=== PATIENT | female | born 1955 | race Caucasian/White ===

== ENCOUNTER 2017-11-29 09:35 | Inpatient (IN) ==
--- NOTE | 2017-11-28 21:49 | Discharge Summary ---
<Catrachito Doshi - Last Filed: 11/29/17 09:55> Orders not resulted at time of discharge: Pending orders 11/29/17 00:01 XR knee RT limited 1-2V [XR] Routine H/H [Hemoglobin and Hematocrit] [HEME] Routine Date of Encounter: 11/29/17 - Discharge Diagnosis (1) Obesity (BMI 30.0-34.9) Priority: Secondary Status: Chronic (2) Arthritis of knee, right Priority: Primary Status: Chronic (3) Status post total knee replacement, right Priority: Primary Status: Acute (4) DMII (diabetes mellitus, type 2) Priority: Secondary Status: Chronic Qualifiers: Diabetes mellitus custodial insulin use: unspecified custodial insulin use status Diabetes mellitus complication status: with unspecified complications Qualified Code(s): E11.8 - Type 2 diabetes mellitus with unspecified complications (5) HTN (hypertension) Priority: Secondary Status: Chronic Qualifiers: Hypertension type: essential hypertension Qualified Code(s): I10 - Essential (primary) hypertension - Hospital Course Hospital course: Ms. Vora is a 62 year old female - Time Spent with Patient Total time spent providing and/or coordinating discharge services: - Discharge Medications Home Medications: Calcium Carbonate [Calcium] 500 mg PO DAILY 08/18/17 [History] Lisinopril [Zestril] 10 mg PO DAILY 08/18/17 [History] Multivitamin [One Daily Essential] 1 each PO DAILY 08/18/17 [History] metFORMIN [Glucophage] 500 mg PO 1700 08/18/17 [History] Aspirin Enteric Coated [Aspirin EC] 325 mg PO BID #20 tablet. 11/28/17 [Rx] OxyCODONE Immed Rel [Roxicodone 5 MG] 5 mg PO Q6HR PRN 7 Days #28 tablet [Rx] Progesterone,Micronized [Prometrium] 200 mg PO HS 11/29/17 [History] Allergies/Adverse Reactions: 3 Allergy/AdvReac Type Severity Reaction Status Date / Time No Known Allergies Allergy Verified 11/29/17 10:31 Primary care physician: Micah Langford DO - Patient Status Disposition: Home Health Service Condition: Good - Discharge Instructions Instructions: Total Knee Replacement (DC) Follow Up With: Elijah Langford DO [Primary Care Provider] - Additional Instructions: Discharge Instructions: Total Knee Replacement Please call [facility] ([phone]), your Primary Care Physician, or report to the Emergency Room if you have any of the following symptoms: Nausea, vomiting, fever greater that 101.5, swelling, chest pain, shortness of breath, increased pain/redness/drainage/odor for your incision site, numbness/ tingling, or any other concerning symptoms. ACTIVITY:Weight-bearing as tolerated. You may progress off support (crutches or walker) as tolerated. Incentive Spirometer 10 times an hour. MEDICATIONS: Upon discharge resume your home medications. Take all the medications as prescribed. Take a stool softener if taking narcotic pain medications. Stool softeners are only effective if you drink enough fluids. Drink 6-8 glass of water or fluids a day, unless this is not allowed for another health problem. Despite using stool softeners, if you haven't had a bowel movement in 3 days, please switch to a gentle laxative. Gentle laxatives are sold over the counter. You should have a bowel movement within 24 hours, if not call the office. You will be discharged from the hospital with a prescription for pain medication. You are encouraged to decrease the use of narcotic pain medication as tolerated. Should you require a refill, please call the office. [facility] prescribes narcotic pain medication for only 4-6 weeks after surgery. If you require pain medication beyond this time period, you may be referred to your Primary Care Physician or to the Pain Clinic for further evaluation. Plan ahead for refills on pain medication as many narcotics either need to be picked up at the office or mailed. It is best to call 48-72 hours in advance of needing a prescription refill so you don't run out of medication. To help control the post-operative pain, you may take NSAIDs (Aleve,Advil, Motrin, Ibuprofen, Naprosyn) or Tylenol as prescribed on the bottle in addition to the pain medication. ANTICOAGULATION (blood thinners): Continue your Aspirin, Lovenox or Coumadin as prescribed to help prevent a blood clot in the leg or in the lungs. As long as your incision remains dry and you tolerate the NSAIDs (Aleve, Advil, Motrin, ibuprofen, naprosyn), it is OK to use the NSAIDS while you are taking your anticoagulation medication. Should your incision start to drain, stop the NSAID and contact our office. Common symptoms of blood clot in the legs include: localized pain, swelling, calf tenderness, redness or discoloration of the skin. Blood clot in the lung symptoms include: shortness of breath, rapid pulse, sweating, and chest pain that worsens with deep breathing, coughing up blood, lightheadedness, feelings of anxiety. If you experience any of these symptoms notify your physician immediately, go to the emergency room, or if having trouble breathing, call 911. WOUND CARE: Leave the dressing on for 7 to 10days. You may change the dressing if it becomes saturated greater than 50%. Do not get the dressing wet at anytime. Wash your hands with antibacterial soap, rinse and dry prior to any wound care. If you have dyllan the visiting nurse or rehab facility can remove the stapes 10-14 days after surgery and place steri-strips across the wound. Leave the steri-strips in place until they fall off on their won. You may let water from the shower run on top of the steri-strips. If you do not have a visiting nurse or rehab facility, you will need to return to the office at 10-14 days for the dyllan to be removed. If you have itching or redness around the dressing call the office. FOLLOW-UP: Please follow up with your surgeon in the orthopedic clinic in 4 weeks from the day of surgery. If you have dyllan that need to be removed, you will need to come back to the office in 10-14 days from the day of surgery. <Rosaura Arreguin - Last Filed: 12/01/17 15:28> Date of Encounter: 12/01/17 Time of Encounter: 15:24 - Discharge Diagnosis (1) Status post total knee replacement, right Priority: Primary Status: Acute Comments: Opsite dressing, leave intact until first post-operative visit. If dressing becomes >50% saturated, contact office, remove dressing and place appropriate dressing in its place. Do not allow for dressing to get wet. Zipline in place, plan to remove at post-operative day #14-16. Total Joint Precautions x 6 weeks Apply cold therapy wrap 3-6x/day for 20 minutes at a time. Encourage ambulation throughout the day Use Incentive spirometer 10x/hour. Elevate affected extremity above heart as tolerated. Brace: Wear knee immobilizer AT NIGHT ONLY until first post-operative appt. .~ (2) Arthritis of knee, right Priority: Primary Status: Chronic (3) DMII (diabetes mellitus, type 2) Priority: Secondary Status: Chronic Qualifiers: Diabetes mellitus long goods drier insulin use: unspecified custodial insulin use status Diabetes mellitus complication status: with unspecified complications Qualified Code(s): E11.8 - Type 2 diabetes mellitus with unspecified complications (4) HTN (hypertension) Priority: Secondary Status: Chronic Qualifiers: Hypertension type: essential hypertension Qualified Code(s): I10 - Essential (primary) hypertension (5) Obesity Priority: Secondary Status: Chronic Qualifiers: Obesity type: due to excess calories Obesity classification: adult class 1 (BMI 30 - 34.9) Serious obesity comorbidity presence: without serious comorbidity Body mass index: BMI 33.0-33.9 Qualified Code(s): E66.09 - Other obesity due to excess calories; Z68.33 - Body mass index (BMI) 33.0-33.9, adult - Hospital Course Hospital course: Ms. Vora is a 62 year old female, ~status post right TKR~ . Patient had uneventful postoperative course. Stable for discharge. Afebrile, vital signs stable. Vital Signs Temp Pulse Resp BP Pulse Ox 12/01/17 10:25 98.1 F 89 16 141/81 97 12/01/17 07:21 98.4 F 91 15 133/78 96 12/01/17 04:12 98.7 F 92 16 136/79 93 11/30/17 23:08 98.1 F 89 16 152/85 96 11/30/17 18:29 98.1 F 83 17 143/81 96 11/30/17 16:21 97.8 F 105 16 134/82 96 Intake and Output 11/30/17 12/01/17 12/01/17 23:59 07:59 15:59 Intake Total 700 / 700 250 / 250 Output Total 300 / 300 Balance 700 / 700 -50 / -50 Intake: Oral 700 / 700 250 / 250 Output: Urine 300 / 300 Other: Stool Size Moderate Stool Consistency formed # Voids 1 1 Weight 81.7 kg Blood Glucose* 148 115 139 Patient Weight 12/01/17 23:59 Weight 81.7 kg Labs reviewed. H/H - stable, asymptomatic Short CBC 12/01/17 Range/Units 01:52 Hgb 10.9 L D (11.5-15.4) g/dL Hct 32.3 L (35.3-44.9) % BMP 12/01/17 Range/Units 01:52 Sodium 136 (136-145) mEq/L Potassium 4.2 (3.5-5.1) mEq/L Chloride 104 (98-107) mEq/L Carbon Dioxide 26 (23-29) mEq/L BUN 16 (8-23) mg/dL Creatinine 0.55 L (0.60-1.20) mg/dL Glucose 133 H (70-105) mg/dL Calcium 8.6 (8.6-10.3) mg/dL Pain control: adequate Participating in PT. All questions and concerns addressed. Educated on use of incentive spirometer. Encouraged ambulation and proper hydration. Patient educated on post-operative restrictions and post-operative care. Assessment and plan: Continue with postoperative care Discharge plan: Home with , discharge today. - Time Spent with Patient Total time spent providing and/or coordinating discharge services: Date of admission: 11/29/17 Primary care physician: Micah Langford DO Anticipated date of discharge: 12/01/17 - Patient Status Functional capacity at discharge: uses cane/walker Overall status at discharge: patient is progressing back to baseline - Diet and Activity Activity: as per physical therapy Diet: advance to your usual diet
[2017-11-29] MEDS ORDERED: *HR* Propofol 200 MG/20 ML VIAL IVP ONE (09:39)
--- NOTE | 2017-11-29 09:55 | History & Physical Report ---
Date of Encounter: 11/29/17 Time of Encounter: 09:54 24 Hour HP Update - Instructions Instructions: If the History and Physical is less than 30 days old and was completed prior to A.M. admission and or procedure and has NOT been updated on calendar day of procedure please complete this update prior to performing procedure. - Update Patient reports changes in Medical Condition: No Changes in examination, assessment, or condition: No Changes in Medication: No Preop tests/diagnostics Reviewed: Yes Surgery Remains Indicated: Yes Consent for Planned Operative Procedure(s) Verified: Yes - Pre-Operative Checklist Preoperative Checklist Indicated: No Prophylactic Antibiotic Ordered: Yes Is VTE Prophylaxis Indicated?: Yes
[2017-11-29] MEDS ORDERED: *HR* FentaNYL (PF) 100 MCG/2 ML VIAL ONE ×2 (10:06→12:27)
[2017-11-29] MEDS ORDERED: *HR* Midazolam HCl 2 MG/2 ML VIAL ONE (10:06)
[2017-11-29] MEDS ORDERED: Lidocaine -MPF 2% 2 ML VIAL ONE (10:07)
[2017-11-29] MEDS ORDERED: Dexamethasone 4 MG/ML VIAL ONE (10:07)
[2017-11-29] MEDS ORDERED: Ondansetron 4 MG/2 ML VIAL ONE ×2 (10:07→10:09)
[2017-11-29] MEDS ORDERED: CeFAZolin Syr 2,000MG/20 ML 2,000 MG/20 ML SYRINGE IVPB ONE (10:07)
[2017-11-29] MEDS ORDERED: Ethanol\\Acetic Acid\\Na Ace\\Ben 1,000 ML IRRIG.SOLN IR ONE (10:07)
[2017-11-29] MEDS ORDERED: Ringers Solution, Lactated 1,000 ML IVC SCH ×2 (10:15→13:47)
[2017-11-29] MEDS ORDERED: *HR* Promethazine 25 MG/ML VIAL IVP PRN (10:28)
[2017-11-29] MEDS ORDERED: *HR* HYDROmorphone (PF) 1 MG/ML SYRINGE IVP PRN (10:28)
[2017-11-29] MEDS ORDERED: Ondansetron 4 MG/2 ML VIAL IVP ONE (10:28)
[2017-11-29] MEDS ORDERED: *HR* OxyCODONE/APAP 5/325 TABLET PO PRN (10:28)
[2017-11-29] MEDS ORDERED: ROPIVACAINE HCL/PF 0.5% 30 ML VIAL ONE (10:43)
--- NOTE | 2017-11-29 10:43 | Anesthesia Evaluation PreOp ---
Date of Encounter: 11/29/17 Time of Encounter: 10:40 - Past History Planned Operation: Robotic R knee arthroplasty Cardiac History: HTN, Hyperlipidemia Pulmonary History: Denies Any Significant HX POLYSOMNOGRAPHIC TECHNOLOGIST History: Denies Any Significant HX Other Medical History: Diabetes Type II, Other (scoliosis, chronic back pain) Anesthesia History: No Prior Anesthetic Complications, Past Anesthesia ( csection x 3, hysteroscopy) Alcohol Use: none Drug use: none Medications and Allergies Calcium Carbonate [Calcium] 500 mg PO DAILY 08/18/17 [History] Lisinopril [Zestril] 10 mg PO DAILY 08/18/17 [History] Multivitamin [One Daily Essential] 1 each PO DAILY 08/18/17 [History] metFORMIN [Glucophage] 500 mg PO 1700 08/18/17 [History] Aspirin Enteric Coated [Aspirin EC] 325 mg PO BID #20 tablet. 11/28/17 [Rx] OxyCODONE Immed Rel [Roxicodone 5 MG] 5 mg PO Q6HR PRN 7 Days #28 tablet [Rx] Aspirin [Adult Aspirin Regimen] 81 mg PO DAILY 11/29/17 [History] Progesterone,Micronized [Prometrium] 200 mg PO HS 11/29/17 [History] 3 Allergy/AdvReac Type Severity Reaction Status Date / Time No Known Allergies Allergy Verified 11/29/17 10:31 - Meds/Allergy Pre-op Review Medications Reviewed: Yes Allergies Reviewed: Yes Beta Blockers on Current Med List: No Anesthesia Results - Labs Laboratory Tests 11/16/17 11/16/17 11/16/17 12:15 12:15 12:15 WBC 6.3 Hgb 15.4 Hct 44.6 Plt Count 236 PT 11.1 INR 1.0 APTT 34.7 Sodium 139 Potassium 4.2 Chloride 108 H Carbon Dioxide 26 BUN 21 Creatinine 0.63 - Imaging EKG: report reviewed (SINUS RHYTHM POOR R WAVE PROGRESSION Electronically Signed On 08-13-2017 8:41:23 EDT by Reji Cain) Anesthesia Exam O2 Sat Height 1.55 m Weight 81.647 kg Weight 81.647 kg O2 Sat by Pulse Oximetry 93 Vital Signs Temp Pulse Resp BP Pulse Ox 97.7 F 75 18 117/73 93 11/29/17 10:13 11/29/17 10:13 11/29/17 10:13 11/29/17 10:13 11/29/17 10:13 Blood glucose: 104 Weight: 81kg NPO (# of Hours): >8 - HEENT Pupil (Motor): Pupils equal, EOMI Mallampati: III Teeth: Normal (overbite, prominent front teeth) Oral Opening: Greater than 3 - POLYSOMNOGRAPHIC TECHNOLOGIST LOC: Oriented POLYSOMNOGRAPHIC TECHNOLOGIST Motor: Normal RUE, Normal LUE, Normal RLE, Normal LLE, Normal Face POLYSOMNOGRAPHIC TECHNOLOGIST Sensory: Normal: RUE, LUE, RLE, LLE, Face - Cardiac Rhythm: Regular - Pulmonary Breath Sounds: bilateral Clear Respiratory Effort: Symmetrical Anesthesia Assess/Plan ASA Score: 2 Modified [place] Scale for Level of Consciousness: Cooperative, oriented, and tranquil Anesthetic Plan: General, Regional (R adductor and Ipack) Monitoring Plan: Standard Monitors Recovery Plan: PACU
[2017-11-29] MEDS ORDERED: Acetaminophen IV 1,000 MG/100 ML INFUS..BTL ONE (10:46)
--- NOTE | 2017-11-29 12:04 | Anesthesia Procedures ---
Date of Encounter: 11/29/17 Time of Encounter: 11:24 Procedures: Anesthesia - Nerve Block Procedure Date: 11/29/17 Time: 11:24 Allergies/Adv Reactions: NKDA Pre-op Diagnosis: R Knee Arthritis Surgical Procedure: R Robotic Total Knee Arthroplasty Checklist: Correct Patient Identifier, Correct procedure, History checked Correct side: Right Blood Thinner: No Monitor Applied: EKG, BP, Pulse Oximetry Supplemental Oxygen via Nasal Cannula (L/min): 2 Sedation: Versed (mg): 2 Sedation: Fentanyl (mcg): 50 Indication: Post Op Analgesia Pre-op Neuro Deficits: No Block Type: Other (Adductor, iPACK, AB) Catheter placed: No Sterile Technique: Yes Ultrasound used: Yes Anatomy identified: Yes Visual spread of Local: Yes Neuro Stimulation: No Blood on Needle Aspiration: No Smooth Injection of Local: Yes Pain with Injection of Local: No Prep: Chlorhexadine Needle: 21 x 100 mm Stimuplex Local: Ropivacaine (30mL of 0.5% Ropi with 4mg decadron (Adductor), 20mL (IPACK ) 10mL (AB) with 0.25% Ropi with 4mg Decadron) Number of Attempts: 1 Complications: None/effective block Vitals: Vital Signs/O2 Sat/Glucose, Most Recent Temp Pulse Resp BP Pulse Ox 97.7 F 69 18 122/69 92 11/29/17 10:13 11/29/17 11:42 11/29/17 10:13 11/29/17 11:42 11/29/17 11:42 Blood Glucose* 104
[2017-11-29] MEDS ORDERED: EPHEDrine 50 MG/ML VIAL ONE (12:38)
--- NOTE | 2017-11-29 12:44 | Orthopedic Operative Note ---
Date of procedure: 11/29/17 Pre-op diagnosis: Right knee arthritis Post-op diagnosis: same Procedure: Procedure: Right robotic-assisted Total knee replacement Estimated blood loss: 200 cc Hardware: Metal and polyethylene replacement. [place] Femur: 3 Tibia: 3 TS insert: 11 Patella: 36 Exam Under anesthesia: 6 degrees flexion contracture and 6 degree varus as calculated by the robot full flexion and no instability Procedural Notes: Grade 4 arthritic changes all 3 compartments. Operative procedure: The patient was brought to the operating room and placed on the operating room table. After general anesthesia was administered the operative knee was examined. Findings were noted in the exam under anesthesia. The operative extremity was prepped and draped in sterile surgical fashion. The patient received IV antibiotics prior to skin incision. A standard midline incision was made centered over the patella. The incision was made through the skin and subcutaneous tissue. A medial parapatellar tendon approach was performed. Care was taken to preserve tissue along the medial aspect of the patella. And to protect the patella tendon. The deep MCL was released off the medial tibia. The infra patella fat pad was excised. The patella was everted and cut was made at the level of the insertion of the quadriceps and patella tendon. The patella was sized the guide was seated and the lug holes are drilled. Knee was brought into flexion. Patient noted to have Steinmann pins were placed in the tibia and the femur for the tibial and femoral arrays respectively. Checkpoints were also placed in the tibia and the femur for calculation purposes. The knee including the femur and the tibial registered. Osteophytes, ACL and PCL were excised at this point. Extension and flexion were assessed with a valgus stress components were adjusted on the computer to balance the knee. Femoral cuts were made first with robotic assistance, these included the anterior cut posterior cuts chamfer cuts. Tibial cut was then performed with robotic assistance as well. Bone fragments were removed, as well as the medial and lateral meniscus. The size 3 femoral guide was seated box cut was made lug holes are drilled. The size 3 tibial tray was seated and prepared with the fin cutter. Trial reduction with the 11 TS Inge revealed extension of 0 degree and 0 degree varus valgus full flexion. No varus valgus instability. Trial reduction revealed excellent patella tracking. All trial components were removed all bony surfaces were irrigated. The Tibia was seated followed by the femur, The selected Inge size was seated and secured patella. Patient had similar findings for motion and stability. The knee was closed by the PA. The knee was then irrigated out with 2 L of pulse irrigation. The extensor mechanism was closed with #2 FiberWire suture and #2 PDS suture. The subcutaneous tissue was then irrigated and closed deep with #1 PDS suture superficially with 0 PDS suture and skin was closed with zip tie The patient was then placed in a sterile dressing and a postoperative brace extubated and transferred to recovery room in stable condition. Anesthesia: GETA Surgeon: Catrachito Doshi Was there an general surgery physician assistant present: Yes Senior Staff Accountant: Rosaura Arreguin Estimated blood loss (cc): 200 Condition: stable Disposition: PACU
--- NOTE | 2017-11-29 13:31 | Anesthesia Evaluation Post Op ---
Date of Encounter: 11/29/17 Time of Encounter: 13:29 - Vital Signs Vital Signs: Vital Signs/O2 Sat, Most Current Temp Pulse Resp BP Pulse Ox 97.7 F 69 18 122/69 92 11/29/17 10:13 11/29/17 11:42 11/29/17 10:13 11/29/17 11:42 11/29/17 11:42 - Lungs Lungs: Clear Ascult./Percussion - Airway Airway: Non-obstructed - Cardiovascular Regular Rate - Mental Status Mental Status: Alert & Oriented, Answers Appropriately - Pain Pain Scale: 4 Pain Scale used: Numeric (1 - 10) - Nausea Vomiting Nausea Vomiting: Not Present - Hydration Hydration: Ice chips, Has not voided Notes: 11/29/17 13:30 Pt denies complaints - Discharge PostOp Status: Transfer Patient to floor
[2017-11-29] MEDS ORDERED: Ondansetron 4 MG/2 ML VIAL IVP PRN (13:47)
[2017-11-29] MEDS ORDERED: Temazepam 15 MG CAPSULE PO PRN (13:47)
[2017-11-29] MEDS ORDERED: D5% in Water 1,000 ML IVC PRN (13:47)
[2017-11-29] MEDS ORDERED: Dextrose Gel 15 GM/37.5 ML TUBE PO PRN ×2 (13:47)
[2017-11-29] MEDS ORDERED: MOM Conc 10 ML UD.LIQ PO PRN (13:47)
[2017-11-29] MEDS ORDERED: Sennosides 8.6 MG TABLET PO PRN (13:47)
[2017-11-29] MEDS ORDERED: Naloxone 0.4 MG/ML INJ IVP PRN (13:47)
[2017-11-29] MEDS ORDERED: *HR* Dextrose 50 % in Water (Syg) 50 ML SYRINGE IVP PRN (13:47)
[2017-11-29] MEDS ORDERED: traMADol 50 MG TABLET PO PRN (13:47)
[2017-11-29 14:01] LABS: Hematocrit 40.4 % (35.3-44.9); Hemoglobin 13.7 g/dL (11.5-15.4)
[2017-11-29] MEDS: Insulin LISPRO 300 UNITS/3 ML VIAL SQ SCH ×3 (14:31→21:06)
[2017-11-29] MEDS: *HR* OxyCODONE/APAP 5/325 TABLET PO PRN ×2 (14:36→18:32)
[2017-11-29] MEDS: *HR* Metformin 500 MG TABLET PO SCH (16:04)
[2017-11-29] MEDS: *HR* Enoxaparin 30 MG/0.3 ML SYRINGE SQ SCH (17:19)
[2017-11-29] MEDS ORDERED: PROGESTERONE MICRONIZED 200 MG PO SCH (21:00)
[2017-11-30] MEDS: *HR* OxyCODONE/APAP 5/325 TABLET PO PRN ×2 (00:02→05:25)
[2017-11-30 01:49] LABS: BUN/Creatinine Ratio 19 (6-26); Blood Urea Nitrogen 13 mg/dL (8-23); Calcium 8.8 mg/dL (8.6-10.3); Carbon Dioxide 24 mEq/L (23-29); Chloride 109 mEq/L (98-107); Glucose 160 mg/dL (70-105); Osmolality,Calculated 290 (280-300); Potassium 4.6 mEq/L (3.5-5.1); Sodium 138 mEq/L (136-145); eGFR For Non-African Americans > 60 (> 60)
[2017-11-30 01:51] LABS: Hemoglobin 12.4 g/dL (11.5-15.4)
[2017-11-30] MEDS: *HR* Enoxaparin 30 MG/0.3 ML SYRINGE SQ SCH ×2 (05:25→17:24)
--- NOTE | 2017-11-30 06:20 | Orthopedics Progress Note ---
Date of Encounter: 11/30/17 Time of Encounter: 06:20 - Assessment and Plan (1) Obesity (BMI 30.0-34.9) Current Visit: Yes Status: Chronic (2) Arthritis of knee, right Current Visit: No Status: Chronic (3) Status post total knee replacement, right Current Visit: No Status: Acute (4) DMII (diabetes mellitus, type 2) Current Visit: No Status: Chronic Qualifiers: Diabetes mellitus residential insulin use: unspecified residential insulin use status Diabetes mellitus complication status: with unspecified complications Qualified Code(s): E11.8 - Type 2 diabetes mellitus with unspecified complications (5) HTN (hypertension) Current Visit: No Status: Chronic Qualifiers: Hypertension type: essential hypertension Qualified Code(s): I10 - Essential (primary) hypertension Subjective Interval history: Patient was seen this morning doing well without complaints. Afebrile vital signs stable. Operative extremity: Neurovascularly intact Dressing clean dry and intact Calves nontender Assessment and plan: Continue with postoperative care Hematocrit 36 Objective Vital signs: Vital Signs Temp Pulse Resp BP Pulse Ox 11/30/17 04:04 97.9 F 82 16 126/78 96 11/30/17 00:11 97.6 F 90 17 120/75 94 11/29/17 19:33 97.5 F L 99 16 113/76 91 11/29/17 18:42 97.5 F L 99 16 91 11/29/17 16:45 98.3 F 96 16 119/79 96 11/29/17 15:50 97.5 F L 97 14 132/84 97 11/29/17 15:02 97.6 F 84 16 134/77 98 11/29/17 14:35 97.4 F L 84 14 138/75 96 11/29/17 13:51 97.3 F L 80 16 130/79 98 11/29/17 13:34 97.3 F L 79 16 144/77 96 11/29/17 13:24 85 16 148/75 94 11/29/17 13:14 83 16 150/76 96 11/29/17 13:04 97.1 F L 94 20 145/77 100 11/29/17 11:42 69 122/69 92 11/29/17 11:28 69 137/80 95 11/29/17 10:13 97.7 F 75 18 117/73 93 Intake and Output 11/29/17 11/29/17 11/30/17 15:59 23:59 07:59 Intake Total 600 / 600 Output Total 200 / 200 700 / 700 Balance -200 / -200 -100 / -100 Intake: IV Fluids 100 / 100 Ancef 2,000 MG In 0.9 % Sodium 100 / 100 Chloride 100 ML @ 200 mls/hr IVPB Q8HR [facility] Rx#:[id number] Oral 500 / 500 Output: Urine 700 / 700 Estimated Blood Loss 200 / 200 Other: Weight 81.647 kg Blood Glucose* 106 195 - Labs CBC & BMP: 11/30/17 01:14 11/30/17 01:14 Labs: Abnormal lab results Chloride 109 mEq/L (98-107) H 11/30/17 01:14 Glucose 160 mg/dL (70-105) H 11/30/17 01:14 POC Glucose 195 mg/dL (70-99) H 11/29/17 21:05 Consult Discharge Plan - Plan Referrals: Elijah Langford DO [Primary Care Provider] -
[2017-11-30] MEDS: Insulin LISPRO 300 UNITS/3 ML VIAL SQ SCH ×4 (07:46→21:10)
[2017-11-30] MEDS: Multivit/Ca/Min/Fe/FA 1 TAB TABLET PO SCH (07:50)
[2017-11-30] MEDS: Aspirin Enteric Coated 81 MG Tablet PO SCH (07:50)
[2017-11-30] MEDS: *HR* OxyCODONE Immed Rel 5 MG TABLET PO PRN ×3 (10:37→18:47)
--- NOTE | 2017-11-30 12:30 | Physician Discharge Referral ---
Home Health/Hosp Referral Info Transfer to: Home Health Attending Provider: Provider in Charge Post Discharge: PCP - Diagnosis (1) Status post total knee replacement, right Priority: Primary Status: Acute (2) Arthritis of knee, right Priority: Primary Status: Chronic (3) DMII (diabetes mellitus, type 2) Status: Chronic (4) HTN (hypertension) Status: Chronic (5) Obesity Status: Chronic - Respiratory Orders None Smoking Cessation: Smoking cessation has been advised. For more information, call the [place] Tobacco Quit Line at 4-789-GYNA-NOW. - Diet/Nutrition Diet/Nutrition Orders: Regular - Activity Activity Orders: Up ad noemy, Ambulate, Chair, Walker - Services Needed Following services are medically necessary services: Nursing, Home Health Aide, Physical Therapy, Occupational Therapy Home Care Orders: Opsite dressing, leave intact until first post-operative visit. If dressing becomes >50% saturated, contact office, remove dressing and place appropriate dressing in its place. Do not allow for dressing to get wet[facility], plan to remove at post-operative day #14-16. Total Joint Precautions x 6 weeks Apply cold therapy wrap 3-6x/day for 20 minutes at a time. Encourage ambulation throughout the day Use Incentive spirometer 10x/hour. Elevate affected extremity above heart as tolerated. Brace: Wear knee immobilizer at night until first post-operative appt. ~ - Transfer Medications Home Medications: Calcium Carbonate [Calcium] 500 mg PO DAILY 08/18/17 [History] Lisinopril [Zestril] 10 mg PO DAILY 08/18/17 [History] Multivitamin [One Daily Essential] 1 each PO DAILY 08/18/17 [History] metFORMIN [Glucophage] 500 mg PO 1700 08/18/17 [History] Aspirin Enteric Coated [Aspirin EC] 325 mg PO BID #20 tablet. 11/28/17 [Rx] OxyCODONE Immed Rel [Roxicodone 5 MG] 5 mg PO Q6HR PRN 7 Days #28 tablet [Rx] Aspirin [Adult Aspirin Regimen] 81 mg PO DAILY 11/29/17 [History] Progesterone,Micronized [Prometrium] 200 mg PO HS 11/29/17 [History] Allergies/Adverse Reactions: 3 Allergy/AdvReac Type Severity Reaction Status Date / Time No Known Allergies Allergy Verified 11/29/17 10:31 Certification: Further, I certify that my clinical findings support that this patient is homebound (i.e. absences from home require considerable and taxing effort and are for medical reasons or mandaen services or infrequently or short duration when for other reasons) because: Homebound Reason: Post-surgery restriction and or conditions limit ability to leave home Attestation: My signature below is to certify that this patient is under my care and that I, or nurse practitioner, or a physician's veterinary assistant working with me, has a face-to -face encounter with this patient.
[2017-11-30] MEDS: *HR* Metformin 500 MG TABLET PO SCH (17:23)
[2017-11-30] MEDS ORDERED: PROGESTERONE MICRONIZED 200 MG PO SCH (21:00)
--- NOTE | 2017-11-30 23:20 | Event Note ---
Date of Encounter: 11/30/17 Time of Encounter: 23:19 Patient using restroom during PCR Plan to DC tomorrow
[2017-12-01] MEDS: *HR* OxyCODONE Immed Rel 5 MG TABLET PO PRN ×2 (00:43→05:28)
[2017-12-01 02:23] LABS: Hematocrit 32.3 % (35.3-44.9); Hemoglobin 10.9 g/dL (11.5-15.4)
[2017-12-01 02:49] LABS: BUN/Creatinine Ratio 29 (6-26); Blood Urea Nitrogen 16 mg/dL (8-23); Calcium 8.6 mg/dL (8.6-10.3); Carbon Dioxide 26 mEq/L (23-29); Chloride 104 mEq/L (98-107); Glucose 133 mg/dL (70-105); Osmolality,Calculated 285 (280-300); Potassium 4.2 mEq/L (3.5-5.1); Sodium 136 mEq/L (136-145); eGFR For Non-African Americans > 60 (> 60)
[2017-12-01] MEDS: *HR* Enoxaparin 30 MG/0.3 ML SYRINGE SQ SCH (05:29)
--- NOTE | 2017-12-01 07:51 | Orthopedics Progress Note ---
Date of Encounter: 12/01/17 Time of Encounter: 07:50 - Assessment and Plan (1) Obesity (BMI 30.0-34.9) Current Visit: Yes Status: Chronic (2) Arthritis of knee, right Current Visit: No Status: Chronic (3) Status post total knee replacement, right Current Visit: No Status: Acute (4) DMII (diabetes mellitus, type 2) Current Visit: No Status: Chronic Qualifiers: Diabetes mellitus senior care insulin use: unspecified senior care insulin use status Diabetes mellitus complication status: with unspecified complications Qualified Code(s): E11.8 - Type 2 diabetes mellitus with unspecified complications (5) HTN (hypertension) Current Visit: No Status: Chronic Qualifiers: Hypertension type: essential hypertension Qualified Code(s): I10 - Essential (primary) hypertension Subjective Interval history: Patient was seen this morning doing well without complaints. Afebrile vital signs stable. Operative extremity: Neurovascularly intact Dressing clean dry and intact Calves nontender Assessment and plan: Continue with postoperative care Hematocrit 32 discharged today Objective Vital signs: Vital Signs Temp Pulse Resp BP Pulse Ox 12/01/17 07:21 98.4 F 91 15 133/78 96 12/01/17 04:12 98.7 F 92 16 136/79 93 11/30/17 23:08 98.1 F 89 16 152/85 96 11/30/17 18:29 98.1 F 83 17 143/81 96 11/30/17 16:21 97.8 F 105 16 134/82 96 11/30/17 11:27 97.7 F 82 16 125/81 98 Intake and Output 11/30/17 11/30/17 12/01/17 15:59 23:59 07:59 Intake Total 480 / 480 700 / 700 250 / 250 Output Total 300 / 300 Balance 480 / 480 700 / 700 -50 / -50 Intake: Oral 480 / 480 700 / 700 250 / 250 Output: Urine 300 / 300 Other: Meal Lunch Percent of Meal Consumed 100% Stool Size Moderate Stool Consistency formed # Voids 1 Weight 81.7 kg Blood Glucose* 137 148 115 Patient Weight 12/01/17 23:59 Weight 81.7 kg - Labs CBC & BMP: 12/01/17 01:52 12/01/17 01:52 Labs: Abnormal lab results Hgb 10.9 g/dL (11.5-15.4) L D 12/01/17 01:52 Hct 32.3 % (35.3-44.9) L 12/01/17 01:52 Creatinine 0.55 mg/dL (0.60-1.20) L 12/01/17 01:52 BUN/Creatinine Ratio 29 (6-26) H 12/01/17 01:52 Glucose 133 mg/dL (70-105) H 12/01/17 01:52 POC Glucose 148 mg/dL (70-99) H 11/30/17 19:02 Consult Discharge Plan - Plan Referrals: Elijah Langford DO [Primary Care Provider] -
[2017-12-01] MEDS: Insulin LISPRO 300 UNITS/3 ML VIAL SQ SCH ×2 (08:02→12:56)
[2017-12-01] MEDS: Aspirin Enteric Coated 81 MG Tablet PO SCH (08:26)
[2017-12-01] MEDS: Multivit/Ca/Min/Fe/FA 1 TAB TABLET PO SCH (08:26)
[2017-12-01] MEDS: *HR* OxyCODONE/APAP 5/325 TABLET PO PRN ×2 (09:53→14:02)
[2017-12-01 10:27] VITALS: BP 141/81
== END 2017-12-01 15:38 | disposition home health service (06) | DRG 302 ==
LOC: SAMDAY 09:35 → 3NENU 13:43
PROVIDERS: ADMIT Orthopaedic Surgery; ATTEND Orthopaedic Surgery